=== PATIENT | male | born 1975 | race Caucasian/White ===

== ENCOUNTER 2017-07-13 05:22 | Emergency (ER) | payer BC, OTHER ==
[2017-07-13] MEDS ORDERED: Ondansetron 4 MG/2 ML SDV IVPUSH ONE (05:56)
[2017-07-13] MEDS ORDERED: Sodium Chloride 0.9% 1,000 ML IV ONE (05:56)
--- NOTE | 2017-07-13 06:01 | EDM.PDOC ---
<Chung Gross - Last Filed: 07/13/17 06:48> ED HPI GENERAL MEDICAL PROBLEM - General Chief Complaint: Gastrointestinal Problem Stated Complaint: VOMITING Time Seen by Provider: 07/13/17 05:38 Source of Information: Reports: Patient, RN Notes Reviewed History Limitations: Reports: No Limitations - History of Present Illness INITIAL COMMENTS - FREE TEXT/NARRATIVE: The patient states that he developed nausea and emesis around 15:30 yesterday, 07/12/2017. No recent fever, constipation, diarrhea, or urinary symptoms. No prior similar symptoms. The patient states that no one else in his household or known coworkers are similarly ill. No recent spoiled food. No recent antibiotics. No recent travel. The patient has not attempted any home remedies for his symptoms. The patient's PCP is Dr. Montiel. - Related Data Allergies Allergy/AdvReac Type Severity Reaction Status Date / Time No Known Allergies Allergy Verified 07/13/17 05:31 Home Meds: Home Meds Aspirin [Halfprin] 81 mg PO DAILY 07/13/17 [History] Lisinopril 10 mg PO DAILY 07/13/17 [History] Ondansetron [Zofran ODT] 4 mg PO Q6H #5 tab.dis 07/13/17 [Rx] Simvastatin [Zocor] 20 mg PO DAILY 07/13/17 [History] SitaGLIPtin [Januvia] 100 mg PO DAILY 07/13/17 [History] metFORMIN HCl [Metformin HCl ER] 2,000 mg PO DAILY 07/13/17 [History] Past Medical History Cardiovascular History: Reports: High Cholesterol, Hypertension Endocrine/Metabolic History: Reports: Diabetes, Type II - Past Surgical History HEENT Surgical History: Reports: Oral Surgery ([place] teeth extraction) GI Surgical History: Reports: Cholecystectomy Musculoskeletal Surgical History: Reports: Shoulder Surgery (right rotator cuff repair, arthroscopic) Social & Family History - Tobacco Use Smoking Status *Q: Never Smoker - Caffeine Use Caffeine Use: Reports: Coffee, Energy Drinks - Alcohol Use Alcohol Use History: Yes Alcohol Use Frequency: Rarely - Recreational Drug Use Recreational Drug Use: No - Living Situation & Occupation Living situation: Reports: , with Spouse, with Family (1 son) 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) ED ROS GENERAL - Review of Systems Review Of Systems: See Below Constitutional: Reports: No Symptoms HEENT: Reports: No Symptoms Respiratory: Reports: No Symptoms Cardiovascular: Reports: No Symptoms Endocrine: Reports: No Symptoms GI/Abdominal: Reports: No Symptoms : Reports: No Symptoms Musculoskeletal: Reports: No Symptoms Skin: Reports: No Symptoms Neurological: Reports: No Symptoms Psychiatric: Reports: No Symptoms Hematologic/Lymphatic: Reports: No Symptoms Immunologic: Reports: No Symptoms ED EXAM, GI/ABD - Physical Exam Exam: See Below Exam Limited By: No Limitations General Appearance: Alert, WD/WN, No Apparent Distress Eyes: Bilateral: Normal Appearance, EOMI Ears: Normal External Exam, Hearing Grossly Normal Nose: Normal Inspection, No Blood Throat/Mouth: Normal Inspection, Normal Lips, Normal Voice, No Airway Compromise Head: Atraumatic, Normocephalic Neck: Normal Inspection, Full Range of Motion Respiratory/Chest: No Respiratory Distress, Lungs Clear, Normal Breath Sounds, No Accessory Muscle Use Cardiovascular: Normal Peripheral Pulses, No Gallop, No JVD, No Murmur, No Rub, Tachycardia (regular) GI/Abdominal Exam: Normal Bowel Sounds, Soft, Non-Tender, No Organomegaly, No Distention, No Abnormal Bruit, No Mass (Male) Exam: Deferred Rectal (Males) Exam: Deferred Back Exam: Normal Inspection, Full Range of Motion, NT Extremities: Normal Inspection, Normal Range of Motion, No Pedal Edema, Normal Capillary Refill Neurological: Alert, Oriented, Normal Cognition, No Motor/Sensory Deficits Psychiatric: Normal Affect Skin Exam: Warm, Dry, Intact, Normal Color, No Rash Course - Vital Signs Last Recorded V/S: Last Vital Signs Temp 36.3 C 07/13/17 05:29 Pulse 120 H 07/13/17 05:29 Resp 16 07/13/17 05:29 BP 146/98 H 07/13/17 05:29 Pulse Ox 96 07/13/17 05:29 Orthostatic Blood Pressure [ 131/86 Sitting] Orthostatic Blood Pressure [ 121/82 Standing] Orthostatic Blood Pressure [ 121/79 Supine] - Orders/Labs/Meds Orders: Active Orders 24 hr Category Date Time Status Orthostatic Vital Signs [RC] STAT Care 07/13/17 05:56 Active Orthostatic Vital Signs [RC] STAT Care 07/13/17 06:18 Active Labs: Laboratory Tests 07/13/17 07/13/17 07/13/17 Range/Units 05:47 06:25 06:25 WBC 14.50 H (4.23-9.07) K/mm3 RBC 5.13 (4.63-6.08) M/mm3 Hgb 14.5 (13.7-17.5) gm/L Hct 41.4 (40.1-51.0) % MCV 80.7 (79.0-92.2) fl MCH 28.3 (25.7-32.2) pg MCHC 35.0 (32.2-35.5) g/dl RDW Std Deviation 39.6 (35.1-43.9) fL Plt Count 284 (163-337) K/mm3 MPV 9.4 (9.4-12.3) fl Neutrophils % (Manual) 91 H (40-60) % Band Neutrophils % 0 (0-10) % Lymphocytes % (Manual) 8 L (20-40) % Atypical Lymphs % 0 % Monocytes % (Manual) 1 L (2-10) % Eosinophils % (Manual) 0 L (0.8-7.0) % Basophils % (Manual) 0 L (0.2-1.2) Platelet Estimate Adequate RBC Morph Comment Normal Sodium 138 (136-145) mEq/L Potassium 4.1 (3.5-5.1) mEq/L Chloride 100 (98-107) mEq/L Carbon Dioxide 26 (21-32) mEq/L Anion Gap 16.1 H (5-15) BUN 30 H (7-18) mg/dL Creatinine 0.9 (0.7-1.3) mg/dL Est Cr Clr Drug Dosing 115.04 mL/min Estimated GFR (MDRD) > 60 (>60) mL/min BUN/Creatinine Ratio 33.3 H (14-18) Glucose 207 H (74-106) mg/dL POC Glucose 178 H (70-105) mg/dL Calcium 8.7 (8.5-10.1) mg/dL Magnesium 1.7 L (1.8-2.4) mg/dl Total Bilirubin 1.5 H (0.2-1.0) mg/dL AST 18 (15-37) U/L ALT 26 (16-63) U/L Alkaline Phosphatase 81 (46-116) U/L Total Protein 7.2 (6.4-8.2) g/dl Albumin 3.5 (3.4-5.0) g/dl Globulin 3.7 gm/dL Albumin/Globulin Ratio 1.0 (1-2) Meds: Medications Discontinued Medications Generic Name Dose Route Start Last Admin Trade Name Andrea PRN Reason Stop Dose Admin Sodium Chloride 1,000 mls @ 999 mls/hr 07/13/17 05:56 07/13/17 06:14 Normal Saline IV 07/13/17 06:56 999 mls/hr ONETIME ONE Administration Dextrose/Sodium Chloride 1,000 mls @ 999 mls/hr 07/13/17 07:45 07/13/17 07:44 Dextrose 5%-Normal Saline IV 999 mls/hr ASDIRECTED ELLA Administration Metoclopramide HCl 7.5 mg 07/13/17 07:35 07/13/17 07:44 Reglan IVPUSH 07/13/17 07:36 7.5 mg ONETIME ONE Administration Ondansetron HCl 4 mg 07/13/17 05:56 07/13/17 06:15 Zofran IVPUSH 07/13/17 05:57 4 mg ONETIME ONE Administration - Re-Assessments/Exams Free Text/Narrative Re-Assessment/Exam: 07/13/17 06:17 The patient is orthostatic. He is currently receiving 1 L normal saline. I will have his orthostatics rechecked following its infusion. 07/13/17 07:[address] James, and care of the patient turned over to him at this time, for change of shift. Departure - Departure Disposition: Home, Self-Care 01 Clinical Impression: Viral gastritis Intractable nausea and vomiting Qualifiers: Vomiting type: unspecified Qualified Code(s): R11.2 - Nausea with vomiting, unspecified - Discharge Information Prescriptions: Ondansetron [Zofran ODT] 4 mg PO Q6H #5 tab.dis Instructions: Nausea, Adult Referrals: Abhay Arana MD [Primary Care Provider] - Forms: ED Department Discharge, ED Return to Work/School Form Additional Instructions: Evaluation the emergency room this morning in regards to persistent intractable nausea and vomiting since mid afternoon yesterday. His likely represents a viral gastritis. Only time will tell how a diarrhea may develop in the next 12 hours. He found to be significantly volume depleted. You're therefore given 2 L of IV fluid while in the ED. Initial dose for nausea relief was Zofran 4 mg IV but he remained mildly nauseated after this. You're therefore given Reglan 7.5 mg IV as well. Treatment at home is Zofran 4 mg under the tongue every 6 hours as needed for nausea relief. Would be due around noon today. Clear fluids such as Gatorade or Powerade in 4- 5 ounces since per hour would be advised. When hungry may try soda crackers first if they stay down may advance to a broth soup or turkey rice turkey noodle etc. Advise staying away from all dairy products apple juice or grape juice until you know for sure you're not going to dab diarrhea. Off work today. Presumably may be able to return to work tomorrow. Advance diet as tolerated. <Jamison James - Last Filed: 07/13/17 14:11> Course - Re-Assessments/Exams Free Text/Narrative Re-Assessment/Exam: 07/13/17 07:[address] Gross at change of shift. Labs are back. White count was slightly elevated at 14.5 with a left shift of 91% neutrophils and no bands. Hemoglobin is 14.5 hematocrit 41.4 glucose normal at 178 MCV is on the low side at 80.7. Sodium 138 potassium 4.1. Toward 100 bicarbonate 26. And a gap is 16.1 B1 is 30. Glucose 207. Magnesium 1.7 bilirubin 1.5. Orthostatics now after a liter of fluids reveal a lying blood pressure 121/79 with a heart rate of 1:15. Sitting it is 131/86 with a heart rate of 121 and standing is 121/82 with a heart rate of 122. He will therefore be given another liter of fluids likely D5 normal saline. Patient is still feeling nauseated. States it comes and goes. I will therefore give him Reglan 7.5 mg IV as well. Departure - Departure Time of Disposition: 09:00 Condition: Fair
[2017-07-13] MEDS ORDERED: Metoclopramide 10 MG/2 ML SDV IVPUSH ONE (07:35)
[2017-07-13] MEDS ORDERED: Dextrose 5%-0.9% NaCl 1,000 ML IV SCH (07:45)
== END 2017-07-13 09:17 | disposition home or self-care (01) ==
LOC: JD.ED 05:22
DX: A08.4 Viral intestinal infection, unspecified (principal); E78.00 Pure hypercholesterolemia, unspecified; I10 Essential (primary) hypertension; E11.9 Type 2 diabetes mellitus without complications; Z79.82 Long term (current) use of aspirin; Z79.899 Other long term (current) drug therapy
CPT/HCPCS: 36415; 80053; 82962; 83735; 85025; 96361; 96374; 96375; 99284; J2405; J2765; J7040; J7042